=== PATIENT | male | born 1990 | race Two or more races ===

== ENCOUNTER 2018-10-13 00:51 | Emergency (ER) | payer SELFPAY ==
[~2018-10-13] VITALS: Ht 190.5 cm; Wt 136.1 kg
--- NOTE | 2018-10-13 01:15 | NUR ---
ED Nurse Note: pt walked in to ED C/O right leg pain. 09/30. it started about 2 days ago per pt. VSS. ot is alert x4. ambulatory
[2018-10-13 02:02] VITALS: BP 125/70
--- NOTE | 2018-10-13 02:03 | NUR ---
ED Nurse Note: while waiting for venous duplex, pt decided not to have the procedure done. stated he wanted to leave. AMA paper explained to pt and pt signed the form. Pt walked out of the ED with steady gait. VSS. wrist band removed. pt took all his belonging.
--- NOTE | 2018-10-13 05:05 | Emergency Room Report ---
History of Present Illness General Chief Complaint: Lower Extremity Injury Source: Patient Present Illness HPI 28-year-old male presents ED for evaluation. Complaining of right calf pain for the last few days. States that he started to feel pain in his calf after running. States that it is becoming progressively more painful. Feels that it is swollen. Throbbing, 7 out of 10, nonradiating. Concerned that he may have a blood clot. Denies chest pain or shortness of breath. States he does have a history of lymphoma. No other aggravating relieving factors. Denies any other associated symptoms Allergies: Uncoded Allergies: CAMPAZINE (Allergy, Unknown, 10/13/18) Patient History Past Medical History: other - lymphoma Past Surgical History: none Pertinent Family History: none Social History: Denies: smoking, alcohol use, drug use Immunizations: UTD Reviewed Nursing Documentation: PMH: Agreed; PSxH: Agreed Nursing Documentation-PMH Hx Cancer: Yes - lymphoma Review of Systems All Other Systems: negative except mentioned in HPI Physical Exam Vital Signs Date Time Temp Pulse Resp B/P (MAP) Pulse Ox O2 Delivery O2 Flow Rate FiO2 10/13/18 01:08 98.1 51 18 114/70 (85) 99 Room Air Sp02 EP Interpretation: reviewed, normal General Appearance: no apparent distress, alert, GCS 15, non-toxic Head: normocephalic Eyes: bilateral eye normal inspection, bilateral eye PERRL ENT: normal ENT inspection Neck: normal inspection Respiratory: normal inspection Cardiovascular #1: normal inspection Gastrointestinal: normal inspection Rectal: deferred Genitourinary: no CVA tenderness Musculoskeletal: back normal, gait/station normal, normal range of motion, calf tenderness, other - negative thomsons test Neurologic: alert, oriented x3, responsive, motor strength/tone normal, sensory intact, speech normal Psychiatric: normal inspection Skin: no rash Lymphatic: normal inspection Medical Decision Making Diagnostic Impression: Primary Impression: Calf pain Qualified Codes: M79.661 - Pain in right lower leg ER Course Hospital Course 28-year-old male present ED complaining of R calf pain and swelling. Differential diagnoses include: DVT, cellulitis, contusion, abscess Clinical course Patient placed on stretcher after initial history and physical I ordered DVT ultrasound. Negative Acevedo test. Patient stated that he did not want to wait for the ultrasound. Understands the risks of leaving. Patient has competency to make his own decisions. Signed AMA form. I. I feel this is a highly complex case requiring extensive working including EKG/Rhythm strip, Xray/CT/US, Blood/urine lab work, repeat exams while in ED, and administration of strong opiates/narcotics for pain control, admission to hospital or close patient follow up. Diagnosis - calf pain patient left AMA Last Vital Signs Date Time Temp Pulse Resp B/P (MAP) Pulse Ox O2 Delivery O2 Flow Rate FiO2 10/13/18 02:02 97.8 90 18 125/70 99 Room Air Status: unchanged Disposition: AGAINST MEDICAL ADVICE Condition: Stable Referrals: NOT CHOSEN IPA/,REFERRING (PCP) Seb Weinberg MD Oct 13, 2018 05:05
== END 2018-10-13 02:10 | disposition left against medical advice (07) ==
LOC: EMR 01:29
DX: M79.661 Pain in right lower leg (principal); Z85.72 Personal history of non-Hodgkin lymphomas; Z88.8 Allergy status to other drugs, medicaments and biological substances
CPT/HCPCS: 99281

== ENCOUNTER 2019-11-05 19:45 | Emergency (ER) | payer BC ==
[~2019-11-05] VITALS: Ht 190.5 cm; Wt 136.1 kg
[2019-11-05 19:55] VITALS: BP 117/70
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
[2019-11-05 20:23] LABS: EOSINOPHILS % (AUTO) 0.9 % (0.0-3.0); HEMATOCRIT 47.3 % (42.0-52.0); HEMOGLOBIN 15.9 G/DL (14.2-18.0); LYMPHOCYTES % (AUTO) 29.9 % (20.0-45.0); MEAN CORPUSCULAR VOLUME 85 FL (80-99); MONOCYTES % (AUTO) 7.9 % (1.0-10.0); NEUTROPHILS % (AUTO) 60.4 % (45.0-75.0); PLATELET COUNT 242 K/UL (150-450); RED BLOOD COUNT 5.55 M/UL (4.70-6.10); RED CELL DISTRIBUTION WIDTH 11.1 % (11.6-14.8); WHITE BLOOD COUNT 10.8 K/UL (4.8-10.8)
[2019-11-05 20:56] LABS: ANION GAP 13 mmol/L (5-15); BLOOD UREA NITROGEN 14 mg/dL (7-18); CALCIUM 8.5 MG/DL (8.5-10.1); CARBON DIOXIDE 26 MMOL/L (21-32); CHLORIDE 106 MMOL/L (98-107); CREATININE 1.4 MG/DL (0.55-1.30); POTASSIUM 3.6 MMOL/L (3.5-5.1); SODIUM 145 MMOL/L (136-145)
[2019-11-05 21:00] LABS: ALANINE AMINOTRANSFERASE 35 U/L (12-78); ALBUMIN 4.2 G/DL (3.4-5.0); ALBUMIN/GLOBULIN RATIO 1.4 (1.0-2.7); ALKALINE PHOSPHATASE 87 U/L (46-116); ASPARTATE AMINO TRANSFERASE 19 U/L (15-37); BILIRUBIN,TOTAL 0.6 MG/DL (0.2-1.0); CREATINE KINASE 58 U/L (26-308)
[2019-11-05 21:10] VITALS: BP 117/70
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
--- NOTE | 2019-11-05 21:46 | NUR ---
Nurse Note: Pt unable to provide urine. VSS, no signs of distress. All safety measures met; will continue to monitor.
[2019-11-05 22:00] VITALS: BP 120/72
--- NOTE | 2019-11-05 22:00 | NUR ---
ER DISCHARGE NOTE: Patient is cleared to be discharged per ERMD. Pt is aox4, on room air, with stable vital signs. Pt was given dc and prescription instructions. Pt was able to verbalize understanding; instructed pt to follow up with primary care phycian within one week. Pt id band and iv site removed without complications; site clean and bandaged. Pt is able to ambulate with steady gait. Pt took all belongings.
[2019-11-05 22:12] LABS: APPEARANCE,URINE CLEAR; BILIRUBIN, URINE NEGATIVE (NEGATIVE); COLOR,URINE YELLOW; GLUCOSE, URINE (UA) NEGATIVE (NEGATIVE); KETONES,URINE NEGATIVE (NEGATIVE); LEUKOCYTE ESTERASE ,URINE NEGATIVE (NEGATIVE); NITRITE,URINE NEGATIVE (NEGATIVE); PH,URINE 6 (4.5-8.0); PROTEIN,URINE NEGATIVE (NEGATIVE); UROBILINOGEN,URINE NORMAL MG/DL (0.0-1.0)
--- NOTE | 2019-11-06 14:18 | Cardiology Report ---
APPROVED REPORT EKG Measurement Heart [id number] <Conclusion> Sinus bradycardia Otherwise normal ECG
== END 2019-11-05 22:00 | disposition home or self-care (01) ==
LOC: EMR 20:16
DX: T75.4XXA Electrocution, initial encounter (principal); W86.8XXA Exposure to other electric current, initial encounter; Y92.9 Unspecified place or not applicable; Z88.8 Allergy status to other drugs, medicaments and biological substances; C16.9 Malignant neoplasm of stomach, unspecified; E66.9 Obesity, unspecified
CPT/HCPCS: 36415; 80053; 80307; 81001; 82550; 85025; 93005; 96360; 99284; J7030